=== PATIENT | female | born 1950 | race African-American/Black ===

== ENCOUNTER 2017-10-18 16:03 | Emergency (ER) | payer BC ==
[~2017-10-18] VITALS: Ht 160 cm; Wt 93.5 kg
[~2017-10-18 16:03] MED LIST: ANAPROX DS550 M1 PO; ASPIR-LOW81 MG PO; ATORVASTATIN CA10 MG PO; ATORVASTATIN CA20 MG PO; BENADRYL50 MG PO; BENZTROPINE ME0.5 MG PO; BUSPAR10 MG PO; BUSPAR15 MG PO; CARBIDOPA/LEVO1 EACH PO; CENTRUM SILVER1 EAC3 PO; CIPROFLOXACIN500 M1; CITRACAL + D C1 EACH PO; CLONAZEPAM0.25 MG PO; CLONAZEPAM0.5 MG PO; CLONAZEPAM1 MG PO; CYCLOBENZAPRINE5 MG PO; CYMBALTA20 MG PO; CYMBALTA30 MG PO; CYMBALTA60 MG PO; Corgard PO; Cymbalta PO; DOK PLUS TABLE1 EACH PO; ELAVIL25 MG PO; ERGOCALCIF50000 UNIT PO; Ecotrin PO; Flagyl PO; HYZAAR 100-21 TABLET PO; HYZAAR 50-121 TABLET PO; INDERAL XL80 MG PO; KEPPRA500 MG PO; KEPPRA750 MG PO; KLONOPIN0.25 MG PO; KLONOPIN0.5 M1 PO; KLONOPIN1 MG PO; KLOR-CON 88 MEQ PO; Keppra PO; KlonoPIN PO; LEVETIRACETAM750 MG; LEVETIRACETAM750 MG PO; LEVOFLOXAC500 MG/100 PO; LIBRIUM; LIDOCAINE700 MG TD; LIPITOR10 MG PO; LIPITOR20 MG PO; LISINOPRIL-HCT1 EAC3 PO; LISINOPRIL20 MG; LISINOPRIL20 MG PO; LOTEMAX5 ML RIGHT EYE; Lactinex,Floranex PO; Lioresal PO; MEDROL DOSEPAK4 MG PO; MELOXICAM7.5 MG PO; METAXALONE800 MG PO; METFORMIN HCL500 MG PO; METRONIDAZOLE250 MG PO; MOBIC7.5 MG PO; NADOLOL20 MG PO; NEURONTIN300 MG PO; NEXIUM40 MG PO; NOVOLOG PE100 UNITS/ SC; NUCYNTA50 MG PO; ONDANSETRON HCL8 MG PO; PERCOCET 10/1 TABLET PO; PREDNISOLONE SOD5 ML RIGHT EYE; RISPERDAL0.25 MG; RISPERDAL2 MG PO; RISPERDAL3 MG PO; ROBITUSSIN AC,T10 ML PO; SERTRALINE HCL50 MG PO; SIMVASTATIN40 M1 PO; SYMBICORT60 INHALAT; TRAMADOL HCL50 MG; TRAMADOL HCL50 MG PO; TYLENOL EXTRA500 MG; ULTRAM50 MG PO; VICODIN,LORT1 TABLET PO; ZANAFLEX4 M1 PO; ZESTORETIC 20-1 EAC1 PO; ZESTRIL,PRINIVI10 M1 PO; ZESTRIL,PRINIVI10 MG PO; ZOFRAN4 MG PO; ZUPLENZ8 MG PO; Zestril,Prinivil PO; Zoloft PO
[2017-10-18] MEDS ORDERED: ULTRAM50 MG PO (18:35)
[2017-10-18] MEDS ORDERED: FLEXERIL10 MG PO (18:35)
[2017-10-18 18:46] VITALS: BP 133/77
== END 2017-10-18 19:19 | disposition home or self-care (01) ==
LOC: EME 16:03
DX: S86.112A Strain of other muscle(s) and tendon(s) of posterior muscle group at lower leg level, left leg, initial encounter (principal); M62.838 Other muscle spasm; I10 Essential (primary) hypertension; E78.5 Hyperlipidemia, unspecified; E11.9 Type 2 diabetes mellitus without complications; G24.9 Dystonia, unspecified; E05.90 Thyrotoxicosis, unspecified without thyrotoxic crisis or storm; J45.909 Unspecified asthma, uncomplicated; K21.9 Gastro-esophageal reflux disease without esophagitis; F41.9 Anxiety disorder, unspecified; F32.9 Major depressive disorder, single episode, unspecified; Z87.891 Personal history of nicotine dependence; Z95.9 Presence of cardiac and vascular implant and graft, unspecified; Z90.49 Acquired absence of other specified parts of digestive tract; Z94.7 Corneal transplant status; Z91.041 Radiographic dye allergy status; Z88.0 Allergy status to penicillin; Z88.8 Allergy status to other drugs, medicaments and biological substances
CPT/HCPCS: 93971; 99281; 99285

== ENCOUNTER 2017-11-15 18:30 | Observation (INO) | payer BC ==
[~2017-11-15] VITALS: Ht 157.5 cm; Wt 93.4 kg
[~2017-11-15 18:30] MED LIST changes: +FLEXERIL10 MG PO
[2017-11-15 19:38] LABS: BASOPHIL (%) 0.5 % (0-1); BASOPHIL COUNT 0.1 K/uL (0-0.1); EOSINOPHIL (%) 1.4 % (0-5); EOSINOPHIL COUNT 0.2 K/uL (0-0.3); HEMOGLOBIN 11.8 G/DL (11.9-15.5); IMMATURE GRANULOCYTE (%) 0.6 % (0.0-0.7); LYMPHOCYTE (%) 17.1 % (15-42); LYMPHOCYTE COUNT 2.4 K/uL (1.0-2.8); MCH 29.6 PG (29.0-34.0); MCHC 32.8 G/DL (30.0-36.0); MCV 90.2 FL (83-99); MONOCYTE COUNT 0.8 K/uL (0-0.8); NEUTROPHIL (%) 74.4 % (45-76); NEUTROPHIL COUNT 10.4 K/uL (1.8-6.4); PLATELET COUNT 259 K/uL (156-360); RED BLOOD COUNT 3.99 M/uL (3.80-5.20); WHITE BLOOD COUNT 13.9 K/uL (4.1-10.2)
[2017-11-15 19:48] LABS: ALBUMIN 3.7 g/dL (3.2-4.8); CHLORIDE 105 mEq/L (99-109); POTASSIUM 3.1 mEq/L (3.7-5.4); SODIUM 138 mEq/L (136-147)
[2017-11-15 19:51] LABS: GLUCOSE 122 mg/dL (70-99); TOTAL PROTEIN 6.1 g/dL (6.4-8.3)
[2017-11-15 19:53] LABS: TOTAL BILIRUBIN 0.6 mg/dL (0.0-1.0)
[2017-11-15 19:54] LABS: ALKALINE PHOSPHATASE 46 IU/L (3-129)
[2017-11-15 19:55] LABS: CREATININE 1.5 mg/dL (0.6-1.3); GFR ESTIMATE (CALCULATED) 45 mL/min/
[2017-11-15 19:56] LABS: AST (GOT) 15 IU/L (2-34); DIRECT BILIRUBIN 0.3 mg/dL (0.0-0.3); UREA NITROGEN (BUN) 27 mg/dL (9-23)
[2017-11-15 19:58] LABS: ALT (GPT) 16 IU/L (3-49); LIPASE 11 U/L (1.0-51.0)
[2017-11-15 20:04] LABS: TROP-I INTERPRETATION NEGATIVE; TROPONIN-I < 0.01 ng/mL (0.0-0.30)
[2017-11-16 00:20] LABS: APPEARANCE SL.HAZY ((CLEAR)); BILIRUBIN NEGATIVE; BLOOD NEGATIVE; COLOR YELLOW ((YELLOW)); GLUCOSE (STRIP) NEGATIVE; KETONES NEGATIVE; LEUKOCYTES NEGATIVE; NITRITE NEGATIVE; PROTEIN (STRIP) NEGATIVE; SPECIFIC GRAVITY 1.018 (1.000-1.030); UROBILINOGEN 0.2 MG/DL (0.2-1.0)
[2017-11-16 00:24] LABS: BACTERIA RARE /HPF; EPITHELIAL CELLS RARE /HPF; MUCUS TRACE /LPF; RED BLOOD CELLS 0-5 /HPF (0-5)
[2017-11-16 02:13] VITALS: BP 104/52
[2017-11-16 07:04] LABS: BASOPHIL (%) 0.7 % (0-1); BASOPHIL COUNT 0.1 K/uL (0-0.1); EOSINOPHIL (%) 2.2 % (0-5); EOSINOPHIL COUNT 0.2 K/uL (0-0.3); HEMATOCRIT 35.3 % (36.0-46.0); IMMATURE GRANULOCYTE (%) 0.3 % (0.0-0.7); LYMPHOCYTE (%) 22.3 % (15-42); MCH 28.9 PG (29.0-34.0); MCHC 31.2 G/DL (30.0-36.0); MCV 92.9 FL (83-99); MONOCYTE (%) 6.4 % (3-12); MONOCYTE COUNT 0.6 K/uL (0-0.8); NEUTROPHIL (%) 68.1 % (45-76); NEUTROPHIL COUNT 6.2 K/uL (1.8-6.4); PLATELET COUNT 237 K/uL (156-360); RBC DIS.WIDTH-CV 15.3 % (11.8-14.6); RBC DIS.WIDTH-SD 51.5 % (39-53); WHITE BLOOD COUNT 9.1 K/uL (4.1-10.2)
[2017-11-16 07:24] LABS: ALBUMIN 3.3 G/DL (3.2-4.8); ALKALINE PHOSPHATASE 35 IU/L (3-129); ALT (GPT) 12 IU/L (3-49); AST (GOT) 12 IU/L (2-34); CHLORIDE 108 MEQ/L (99-109); CREATININE 1.2 MG/DL (0.6-1.3); DIRECT BILIRUBIN 0.1 mg/dL (0.0-0.3); GFR ESTIMATE (CALCULATED) 58 mL/min/; SODIUM 141 MEQ/L (136-147); TOTAL BILIRUBIN 0.8 MG/DL (0.0-1.0); TOTAL PROTEIN 5.2 G/DL (6.4-8.3); UREA NITROGEN (BUN) 19 mg/dL (9-23)
[2017-11-16 07:32] LABS: GLUCOSE 80 mg/dL (70-99); POTASSIUM 3.9 MEQ/L (3.7-5.4)
[2017-11-16 08:10] VITALS: BP 107/59; BP 127/71; BP 135/69
[2017-11-16] MEDS ORDERED: HYDROXYCHLOROQ200 MG PO (11:11)
[2017-11-16] MEDS ORDERED: ATENOLOL/CHLOR1 EAC1 PO ×2 (11:12→13:31)
[2017-11-16] MEDS ORDERED: PREDNISONE1 MG PO (11:13)
[2017-11-16] MEDS ORDERED: PREDNISONE2.5 MG PO (11:14)
[2017-11-16] MEDS ORDERED: FOLIC ACID1 MG PO (11:14)
[2017-11-16] MEDS ORDERED: METHOTREXATE2.5 MG PO (11:15)
[2017-11-16] MEDS ORDERED: SINGULAIR10 MG PO (11:15)
[2017-11-16] MEDS ORDERED: PRED FORTE100 DROP/5 LEFT EYE (11:17)
[2017-11-16] MEDS ORDERED: CLONAZEPAM0.5 MG PO ×2 (11:17→11:18)
[2017-11-16] MEDS ORDERED: TRAMADOL HCL50 MG PO (11:19)
[2017-11-16 11:27] VITALS: BP 120/65
[2017-11-16] MEDS ORDERED: DULOXETINE HCL30 MG PO (13:30)
[2017-11-16] MEDS ORDERED: SPIRIVA RESPIMAT4 GM IH (13:33)
[2017-11-16] MEDS ORDERED: SYMBICORT60 INHALAT IH (13:33)
[2017-11-16 15:44] VITALS: BP 110/67
[2017-11-16] MEDS ORDERED: MECLIZINE HCL12.5 M1 PO (16:16)
== END 2017-11-16 16:48 | disposition home or self-care (01) ==
LOC: EME 18:30 → EDOF 23:25 → ENRESERV 23:32 → 5WEST 11-16 02:07
PROVIDERS: Internal Medicine; Physician Assistant
DX: R55 Syncope and collapse (principal); N17.9 Acute kidney failure, unspecified; E87.6 Hypokalemia; I10 Essential (primary) hypertension; F41.8 Other specified anxiety disorders; M35.3 Polymyalgia rheumatica; G24.9 Dystonia, unspecified; J44.9 Chronic obstructive pulmonary disease, unspecified; E11.9 Type 2 diabetes mellitus without complications; E78.5 Hyperlipidemia, unspecified; Z86.73 Personal history of transient ischemic attack (TIA), and cerebral infarction without residual deficits; K21.9 Gastro-esophageal reflux disease without esophagitis; Z88.0 Allergy status to penicillin; Z88.8 Allergy status to other drugs, medicaments and biological substances; Z91.041 Radiographic dye allergy status; Z87.19 Personal history of other diseases of the digestive system; Z90.49 Acquired absence of other specified parts of digestive tract; Z94.7 Corneal transplant status; Z80.0 Family history of malignant neoplasm of digestive organs; Z80.3 Family history of malignant neoplasm of breast; Z82.3 Family history of stroke; Z82.0 Family history of epilepsy and other diseases of the nervous system; Z83.3 Family history of diabetes mellitus; Z87.891 Personal history of nicotine dependence
CPT/HCPCS: 70450; 71045; 74176; 80048; 80076; 81003; 82948; 83605; 83690; 84484; 85025; 85379; 93005; 93880; 99281; 99285; G0378; J1644; J2405; J7030; J7040

== ENCOUNTER → 2017-12-04 | Outpatient (CLI) | payer BC ==
[~2017-12-04] MED LIST changes: +ATENOLOL/CHLOR1 EAC1 PO; +DULOXETINE HCL30 MG PO; +FOLIC ACID1 MG PO; +HYDROXYCHLOROQ200 MG PO; +MECLIZINE HCL12.5 M1 PO; +METHOTREXATE2.5 MG PO; +PRED FORTE100 DROP/5 LEFT EYE; +PREDNISONE1 MG PO; +PREDNISONE2.5 MG PO; +SINGULAIR10 MG PO; +SPIRIVA RESPIMAT4 GM IH; +SYMBICORT60 INHALAT IH
== END | disposition home or self-care (01) ==
DX: R13.12 Dysphagia, oropharyngeal phase (principal); I69.398 Other sequelae of cerebral infarction; Z86.79 Personal history of other diseases of the circulatory system; Z87.19 Personal history of other diseases of the digestive system
CPT/HCPCS: 92611 GN; G8996 GN; G8997 GN; G8998 GN

== ENCOUNTER 2018-01-29 07:49 | Day surgery (SDC) | payer BC ==
[~2018-01-29] VITALS: Ht 157.5 cm; Wt 91.2 kg
[2018-01-29 13:45] VITALS: BP 108/81
[2018-01-29 14:26] VITALS: BP 119/70
== END 2018-01-29 14:32 | disposition home or self-care (01) ==
LOC: SDC 07:49
PROVIDERS: Ophthalmology
DX: H33.42 Traction detachment of retina, left eye (principal); H35.372 Puckering of macula, left eye; H33.102 Unspecified retinoschisis, left eye; I10 Essential (primary) hypertension; M35.3 Polymyalgia rheumatica; J45.909 Unspecified asthma, uncomplicated; Z86.73 Personal history of transient ischemic attack (TIA), and cerebral infarction without residual deficits; Z87.891 Personal history of nicotine dependence; Z88.0 Allergy status to penicillin
CPT/HCPCS: 82948; J0690; J0713; J1100; J1580; J2250; J2405; J3300